=== PATIENT | male | born 1980 | race African-American/Black ===

== ENCOUNTER 2018-11-04 13:54 | Emergency (ER) | payer OTHER ==
[~2018-11-04] VITALS: Ht 172.7 cm; Wt 99.8 kg
[2018-11-04] MEDS ORDERED: IV NORMAL SALINE 1000ML BAG 1,000 ML IV ONE (15:00)
[2018-11-04] MEDS ORDERED: fentaNYL PF VIAL 100 MCG/2 ML VIAL IV PRN (15:00)
--- NOTE | 2018-11-04 15:19 | EKG ---
[facility] [address] [place] [address] Test Date: 2018-11-04 Test Time: 14:34:02 Pat Name: NORI CARROLL Department: Room: Gender: M Breakfast Cook: : 1980 Requested By: GAL SIERRA Order Number: [id number] Reading MD: Measurements Intervals [place] Rate: 80 P: 0 TX: 66 QRS: -175 QRSD: 248 T: -105 QT: 456 QTc: 530 Interpretive Statements SINUS ARRHYTHMIA * POSSIBLE REVERSAL OF THE ARM LEADS ABNORMAL RIGHT SUPERIOR AXIS DEVIATION RIGHT BUNDLE BRANCH BLOCK CONSIDER RIGHT VENTRICULAR HYPERTROPHY QRS(T) CONTOUR ABNORMALITY CANNOT RULE OUT ANTEROSEPTAL MYOCARDIAL DAMAGE ABNORMAL ECG No previous ECG available for comparison
[2018-11-04] MEDS ORDERED: ONDANSETRON PF 4 MG/2 ML VIAL. IV ONE (15:30)
[2018-11-04] MEDS ORDERED: FAMOTIDINE 20 MG/2 ML VIAL IVP ONE (15:30)
[2018-11-04 15:36] LABS: BASO % 0 % (0-3); EOS % 0 % (0-3); HEMATOCRIT 44.3 % (39.0-53.0); HEMOGLOBIN 14.9 g/dL (13.0-17.5); LYMPH # 1.6 x10^3/uL (1.0-4.8); LYMPH % 14 % (24-48); MEAN CORPUSCULAR HEMOGLOBIN 31 pg (25-35); MEAN CORPUSCULAR HGB CONC 34 g/dL (31-37); MEAN CORPUSCULAR VOLUME 91 fL (79-100); MONO # 0.4 x10^3/uL (0.0-1.1); MONO % 4 % (0-9); NEUT # 9.5 x10^3/uL (1.8-7.7); NEUT % 82 % (31-73); PLATELET COUNT 363 x10^3/uL (140-400); RED BLOOD COUNT 4.87 x10^6/uL (4.30-5.70); RED CELL DISTRIBUTION WIDTH 13.2 % (11.5-14.5); WHITE BLOOD COUNT 11.6 x10^3/uL (4.0-11.0)
[2018-11-04] MEDS ORDERED: CONTRAST GIVEN. MC PRN (15:45)
[2018-11-04 15:49] LABS: CALCIUM 9.2 mg/dL (8.5-10.1); CREATININE 1.1 mg/dL (0.7-1.3); GFR 89.7; POTASSIUM 3.1 mmol/L (3.5-5.1)
[2018-11-04 15:55] LABS: ALBUMIN 4.8 g/dL (3.4-5.0); ALBUMIN/GLOBULIN RATIO 1.4 (1.0-1.7); TOTAL BILIRUBIN 1.4 mg/dL (0.2-1.0); TOTAL PROTEIN 8.2 g/dL (6.4-8.2)
[2018-11-04] MEDS ORDERED: IOHEXOL 300 MG/ML 100ML VIAL. IV ONE (16:00)
--- NOTE | 2018-11-04 16:50 | RAD ---
EXAM: CT Abdomen and Pelvis with IV contrast CLINICAL HISTORY: Generalized abdominal pain. COMPARISON: none TECHNIQUE: Helical CT of the abdomen and pelvis was performed following the administration of intravenous contrast. Axial, coronal and sagittal reformatted images were generated. PQRS compliance statement - One or more of the following individualized dose reduction techniques were utilized for this study: 1. Automated exposure control 2. Adjustment of the mA and/or kV according to patient size 3. Use of iterative reconstruction technique FINDINGS: Lower chest: Lung bases are clear. Abdomen and Pelvis: No focal liver lesion. Gallbladder is normal. No biliary ductal dilatation. Pancreas is unremarkable. Spleen is normal in appearance. Adrenal glands are unremarkable. Symmetric nephrograms. No focal renal lesion. No hydronephrosis. No hydroureter. Bladder is grossly unremarkable. Moderate colonic stool content is seen. Appendix is normal. No small or large bowel dilatation to suggest bowel obstruction. Bladder is unremarkable. Small fat-containing left inguinal hernia. Small fat-containing periumbilical hernia. No abdominal or pelvic ascites. No abdominal or pelvic lymphadenopathy. Bones: Osseous structures are grossly unremarkable. IMPRESSION: 1. No evidence for acute abdominal or pelvic process. 2. Appendix is normal. 3. No evidence for bowel obstruction. 4. No abdominal or pelvic ascites. Electronically signed by: Ryan Luz MD (11/04/2018 4:47 PM) [facility]
[2018-11-04 17:25] LABS: BILIRUBIN,URINE NEGATIVE (NEG); CLARITY,URINE CLEAR; COLOR,URINE YELLOW; NITRITE,URINE NEGATIVE (NEG); PROTEIN,URINE NEGATIVE (NEG-TRACE)
[2018-11-04] MEDS ORDERED: POTASSIUM CHLORIDE 20 MEQ TABLET.ER. PO ONE (17:30)
[2018-11-04 17:33] LABS: BACTERIA,URINE 0 /HPF (0-FEW); RBC,URINE 0 /HPF (0-2); WBC,URINE 0 /HPF (0-4)
[2018-11-04 17:36] LABS: BARBITURATES NEG (NEG); BENZODIAZEPINES NEG (NEG); CANNABINOIDS NEG (NEG); COCAINE NEG (NEG); METHADONE NEG (NEG); OPIATES POS (NEG); PHENCYCLIDINE NEG (NEG)
[2018-11-04 17:38] LABS: AMPHETAMINE/METHAMPHETAMINE NEG (NEG)
[2018-11-04 17:54] VITALS: BP 141/89
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
== END 2018-11-04 18:12 | disposition home or self-care (01) ==
LOC: EEVIPCON 13:54 → ER 13:54
DX: R10.84 Generalized abdominal pain (principal); R11.2 Nausea with vomiting, unspecified; R19.7 Diarrhea, unspecified; K21.9 Gastro-esophageal reflux disease without esophagitis
CPT/HCPCS: 36415; 74177; 80053; 80307; 81001; 82553; 83690; 83735; 83880; 84443; 84484; 85025; 93005; 96361; 96374; 96375; 99285; J2405; J3010; J3490; J7030; Q9967